=== PATIENT | male | born 1965 | race Hispanic/Latino ===

== ENCOUNTER 2022-05-16 15:00 | Emergency (ER) | payer BC ==
[~2022-05-16] VITALS: Ht 177.8 cm; Wt 120.9 kg
[2022-05-16] MEDS ORDERED: NITROGLYCERIN 2% OINT 1 GM PKT TOP ONE (16:15)
[2022-05-16] MEDS ORDERED: METOPROLOL TARTRATE INJ 1 MG/ML VIAL IV ONE (16:15)
[2022-05-16] MEDS ORDERED: METFORMIN HCL500 MG PO (16:32)
[2022-05-16] MEDS ORDERED: ADDERALL 30 MG30 MG (16:32)
[2022-05-16] MEDS ORDERED: TRULICITY3 MG/0.5 M (16:32)
[2022-05-16] MEDS ORDERED: ULTRAM 50MG50 MG PO (16:32)
[2022-05-16] MEDS ORDERED: ENOXAPARIN SODIUM INJ 100 MG/ML SYR SC STA (16:43)
[2022-05-16] MEDS ORDERED: CLOPIDOGREL BISULFATE 75 MG TAB PO ONE (16:45)
[2022-05-16] MEDS ORDERED: METOPROLOL TARTRATE INJ 1 MG/ML VIAL ONE (17:08)
[2022-05-16] MEDS ORDERED: NITROGLYCERIN 2% OINT 1 GM PKT ONE (17:08)
[2022-05-16] MEDS ORDERED: ENOXAPARIN SODIUM INJ 100 MG/ML SYR SC ONE (17:08)
[2022-05-16] MEDS ORDERED: CLOPIDOGREL BISULFATE 75 MG TAB ONE (17:08)
[2022-05-16] MEDS ORDERED: ONDANSETRON HCL INJ 2MG/ML 2ML 2 MG/ML VIAL IV STA (17:21)
[2022-05-16] MEDS ORDERED: Morphine 4mg INJECTION 4 MG/ML INJ IV ONE ×2 (17:30→18:15)
[2022-05-16] MEDS ORDERED: NITROGLYCERIN 0.4 MG SUBL ONE (18:09)
[2022-05-16] MEDS ORDERED: Morphine 4mg INJECTION 4 MG/ML INJ ONE (18:10)
[2022-05-16] MEDS ORDERED: NITROGLYCERIN 0.4 MG SUBL SL ONE (18:15)
== END 2022-05-16 18:23 | disposition short-term general hospital (02) ==
LOC: FSED 15:04
DX: I24.9 Acute ischemic heart disease, unspecified (principal); I21.4 Non-ST elevation (NSTEMI) myocardial infarction; R03.0 Elevated blood-pressure reading, without diagnosis of hypertension; E11.65 Type 2 diabetes mellitus with hyperglycemia; F90.9 Attention-deficit hyperactivity disorder, unspecified type; E66.01 Morbid (severe) obesity due to excess calories; N39.0 Urinary tract infection, site not specified; F17.210 Nicotine dependence, cigarettes, uncomplicated; Z71.6 Tobacco abuse counseling; Z20.822 Contact with and (suspected) exposure to COVID-19; Z79.85 Long-term (current) use of injectable non-insulin antidiabetic drugs; Z79.84 Long term (current) use of oral hypoglycemic drugs; Z79.899 Other long term (current) drug therapy
CPT/HCPCS: 71046; 80053; 81003; 82553; 84484; 85025; 93005; 96372; 96374; 96375; 96376; 99284; J1650; J2270; J2405; U0002